=== PATIENT | male | born 1980 | race Caucasian/White ===

== ENCOUNTER 2017-06-21 20:02 | Emergency (ER) | payer BC ==
[~2017-06-21] VITALS: Ht 188 cm; Wt 99.3 kg
[2017-06-21] MEDS ORDERED: PERCOCET 5/31 TABLET PO (23:26)
[2017-06-21] MEDS ORDERED: ZOFRAN ODT4 MG PO (23:26)
[2017-06-22 00:35] VITALS: BP 153/99
[2017-06-25] MEDS ORDERED: OXYCODONE HCL5 MG PO (11:37)
== END 2017-06-22 00:36 | disposition home or self-care (01) ==
LOC: EME → TRA 20:02 → EDBD 20:02 → EME 20:02 → TRA 06-22 00:36
DX: S82.141A Displaced bicondylar fracture of right tibia, initial encounter for closed fracture (principal); S82.831A Other fracture of upper and lower end of right fibula, initial encounter for closed fracture; V86.55XA Driver of 3- or 4- wheeled all-terrain vehicle (ATV) injured in nontraffic accident, initial encounter
CPT/HCPCS: 73560; 73590; 73700; 99281; 99284

== ENCOUNTER 2017-06-27 10:27 | Day surgery (SDC) | payer BC ==
[~2017-06-27] VITALS: Ht 188 cm; Wt 95.3 kg
[~2017-06-27 10:27] MED LIST: OXYCODONE HCL5 MG PO; PERCOCET 5/31 TABLET PO; ZOFRAN ODT4 MG PO
[2017-06-27 10:53] VITALS: BP 157/95
[2017-06-27 19:10] VITALS: BP 131/84
[2017-06-27 23:45] VITALS: BP 123/59
[2017-06-28 04:21] VITALS: BP 135/85
[2017-06-28 08:05] VITALS: BP 129/75
[2017-06-28 12:50] VITALS: BP 149/74
[2017-06-28 17:19] VITALS: BP 129/69
[2017-06-28 23:38] VITALS: BP 133/73
[2017-06-29 08:00] VITALS: BP 117/64
[2017-06-29 16:52] VITALS: BP 129/77
[2017-06-29 17:03] VITALS: BP 136/70
[2017-06-29] MEDS ORDERED: OXYCODONE HCL5 MG PO (17:30)
[2017-06-29] MEDS ORDERED: ASPIR-TRIN325 M1 PO (17:30)
== END 2017-06-29 18:38 | disposition home or self-care (01) ==
LOC: SDC 10:27 → 2SOUTH 17:29 → ENRESERV 17:29 → 3EAST 19:13
DX: S82.141A Displaced bicondylar fracture of right tibia, initial encounter for closed fracture (principal); V86.55XA Driver of 3- or 4- wheeled all-terrain vehicle (ATV) injured in nontraffic accident, initial encounter; Y93.I9 Activity, other involving external motion
CPT/HCPCS: 73560; 76000; C1713; G0378; G8978 GP CK; G8979 GP CK; J0131; J0690; J1100; J1170; J1644; J2250; J2405; J2795; J3010; J7120